=== PATIENT | male | born 1945 | race Caucasian/White ===

== ENCOUNTER 2020-09-25 07:35 | Day surgery (SDC) | payer MEDICARE ==
[~2020-09-25] VITALS: Ht 177.8 cm; Wt 85.5 kg
[~2020-09-25 07:35] MED LIST: AMLODIPINE BESYL5 MG PO; ATENOLOL50 MG PO; CIALIS20 MG PO; COUMADIN5 MG PO; FLUTICASONE PRO16 GM NAS; FUROSEMIDE20 MG PO; LOSARTAN POTAS100 MG PO; PERCOCET 5-3251 EACH PO; SIMVASTATIN20 MG PO; SUDAFED 12-HOU120 MG PO; TERAZOSIN HCL5 MG PO; VALACYCLOVIR500 MG PO; VALTREX1000 MG PO; WARFARIN SODIUM5 MG PO; WARFARIN SODIUM6 MG PO
--- NOTE | 2020-09-25 10:57 | NUR ---
09/25/20 Tom7 Jessica Ochoa 1051-PATIENT ARRIVED TO PACU ON 6L MASK RR EVEN ORAL AIRWAY IN PLACE. NONAROUSABLE. INCISION TO ABDOMEN CDI, IVF INFUSING. AFIB HR 60'S. WILL PLACE ICE OVER INCISION.
--- NOTE | 2020-09-25 11:39 | NUR ---
1135: PT ARRIVES TO DS RM 7 FROM PACU WITH EYES OPEN ON 2 L VIA NC, RESP EVEN AND UNLABORED. PT ABLE TO ANSWER COMMANDS APPROPRIATELY, DENIES PAIN OR NAUSEA. PT PROVIDED SMALL SIP OF WATER. DC CRITERIA EXPLAINED TO PT, CALL LIGHT WITHIN REACH. PT DROWSY, CONT PULSE OXIMETER LEFT IN PLACE.
--- NOTE | 2020-09-25 12:07 | NUR ---
PATIENT PUT INTERACTIVE MEDIA DIRECTOR LIGHT. NEEDED ASSISTANCE TO ADJUST BED. PATIENT GIVEN PUDDING. AT BEDSIDE. CALL LIGHT WITHIN REACH.
[2020-09-25] MEDS ORDERED: DILAUDID4 MG PO (12:16)
--- NOTE | 2020-09-25 12:36 | NUR ---
PATIENT TOLERATED PUDDING WELL TACO [place]PT[place] THAT WAS GIVEN TO PATIENT BY . PATIENT GIVEN SECOND PUDDING PER HIS REQUEST. DENIES PAIN. ABDOMEN DRESSING CDI. VS CHECKED. O2 TURNED OFF. PATIENT ON ROOM AIR. AT BEDSIDE. CALL LIGHT WITHIN REACH.
--- NOTE | 2020-09-25 15:00 | NUR ---
1237: PATIENT'S O2 SAT CHECKED. MAINTAINING O2 SATS ON ROOM AIR. PATIENT ASSISTED OOB, TO GET DRESSED, AND TO WALK TO BATHROOM. VOID WITHOUT DIFFICULTY. GAIT STEADY. DISCHARGE INSTRUCTIONS GIVEN TO PATIENT AND . IV DC'D WNL. TIP INTACT. DRESSING APPLIED. 1303: PATIENT DISCHARGED TO HOME WITH VIA WHEELCHAIR.
--- NOTE | 2020-09-26 05:41 | OR ---
[facility] [address], [place] [address] Signed DATE OF OPERATION: SURGEON: Eunice Estrada MD PREOPERATIVE DIAGNOSES: 1. Incarcerated supraumbilical trocar site incisional hernia (4 mm). 2. Incarcerated umbilical hernia (10 mm). POSTOPERATIVE DIAGNOSES: 1. Incarcerated supraumbilical trocar site incisional hernia (4 mm). 2. Incarcerated umbilical hernia (10 mm). PROCEDURES: 1. Primary supraumbilical trocar site incisional herniorrhaphy. 2. Primary umbilical herniorrhaphy with intraabdominal Ventralex mesh (4.3 cm). ESTIMATED BLOOD LOSS: None. INDICATIONS: Abhinav is a 74-year-old gentleman, asked to see me for his two hernias. He has an incarcerated umbilical hernia. He also has incarcerated supraumbilical trocar site incisional hernia. He continues to exercise regularly and keeps himself at his ideal body weight. He just got back from [place] after a fishing trip. He said the lump above the umbilicus has been quite painful, particularly leaning up against the edge of the boat and so forth. He reminded me this area was used for his robotic assisted prostatectomy as well as his laparoscopic cholecystectomy. He had been to his primary care provider. The ultrasound confirmed incarcerated fat in his incisional hernia. There was also fat inside the umbilical hernia. There was concern about bowel behind the umbilical hernia. In the office, Canelo and I could easily identify both hernias. Both were incarcerated and a bit tender to palpation. I gave Canelo our pamphlet on hernias. We had reviewed that together. He understands the nature of these two hernias. He understands the difference between a primary suture repair and a mesh repair. We had reviewed the expected intraop and postop course. There is risk of surgery including, but not limited to bleeding, infection, scarring, change in contour of the skin as well as recurrent hernias, chronic pain and infection of mesh requiring removal. He had expressed understanding and wished to proceed. DESCRIPTION OF PROCEDURE: I met with Canelo and his in our preop area. We all agreed on the two hernias, encircled them appropriately and marked them with my initials. After this, Canelo was Electronically Signed By: EUNICE ESTRADA MD 09/26/20 0541 PATIENT NAME: ABHINAV DOSHI OPERATIVE REPORT DATE OF : 45 REPORT #: [id number] PHYSICIAN: EUNICE ESTRADA MD PCP: ESTEFANY SCHULZ PA-C REPORT IS CONFIDENTIAL AND NOT TO BE RELEASED WITHOUT AUTHORIZATION [facility] [address], [place] [address] Signed taken into the operating room and placed in the supine position under general endotracheal tube anesthesia. He was given preoperative antibiotics along with subcutaneous heparin. SCDs were utilized. He was then prepped and draped in the usual sterile fashion. Even with sedation, we could not reduce the two hernias. A standard periumbilical midline incision was developed utilizing his previous scar. This was carried down around the two hernias bluntly and with the cautery. Both contained fat that had to be amputated and passed off the field. The trocar site incisional hernia was very tiny 3 or 4 mm at most. There was heavy scar tissue on either side. Consequently, we closed that with interrupted [id number] and simple #1 Prolene suture. The umbilical skin had been from the umbilical fascial defect. The umbilical fascial defect was about 10 mm in diameter. We therefore chose our 4.3 cm round Ventralex mesh and we placed that inside the abdomen and flushed against the posterior abdominal wall. We then closed the fascial defect transversely with a running #1 Prolene suture. Several passes of the suture went through the tab on the mesh to help hold it in place. The tab was cut flush with the abdominal wall and discarded. After this, local anesthetic was copiously injected into the abdominal wall and subcutaneous tissues. The wound was irrigated and suctioned out until clear. We brought the umbilical skin back down the midline fascia with an interrupted 2-0 PDS suture. We used interrupted 3-0 subcuticular Monocryl sutures to close the dermis. 5-0 fast absorbing plain gut running suture was used to reapproximate the skin edges. Dry gauze and tape were then applied. Canelo was then awakened from his anesthesia, extubated in the OR, and taken to recovery room in stable condition. Eunice Estrada MD ALB/MODL /[id number] cc: MD Estefany Soto PA-C Copies: EUNICE ESTRADA MD Electronically Signed By: EUNICE ESTRADA MD 09/26/20 0541 PATIENT NAME: ABHINAV DOSHI OPERATIVE REPORT DATE OF : 45 REPORT #: [id number] PHYSICIAN: EUNICE ESTRADA MD PCP: ESTEFANY SCHULZ PA-C REPORT IS CONFIDENTIAL AND NOT TO BE RELEASED WITHOUT AUTHORIZATION [facility] [address] [place] [address] [place], [place] [address] Signed ESTEFANY SCHULZ PA-C ~ Electronically Signed By: EUNICE ESTRADA MD 09/26/20 0541 PATIENT NAME: ABHINAV DOSHI OPERATIVE REPORT DATE OF : 45 REPORT #: [id number] PHYSICIAN: EUNICE ESTRADA MD PCP: ESTEFANY SCHULZ PA-C REPORT IS CONFIDENTIAL AND NOT TO BE RELEASED WITHOUT AUTHORIZATION
== END 2020-09-25 13:03 | disposition home or self-care (01) ==
LOC: DS 07:35
PROVIDERS: ATTEND Colon & Rectal Surgery
PROC: 0WUF0JZ Supplement Abdominal Wall with Synthetic Substitute, Open Approach (ICD-10-PCS; 2020-09-25)
PROC: 0WQF0ZZ Repair Abdominal Wall, Open Approach (ICD-10-PCS; principal; 2020-09-25 08:30)
DX: K43.0 Incisional hernia with obstruction, without gangrene (principal); K42.0 Umbilical hernia with obstruction, without gangrene; I10 Essential (primary) hypertension; E11.9 Type 2 diabetes mellitus without complications; E78.5 Hyperlipidemia, unspecified; I48.91 Unspecified atrial fibrillation; Z79.01 Long term (current) use of anticoagulants; Z88.5 Allergy status to narcotic agent; Z88.0 Allergy status to penicillin; Z91.048 Other nonmedicinal substance allergy status
CPT/HCPCS: 00750; C1781; J0330; J0690; J1100; J1644; J1885; J2001; J2405; J2704; J7121

== ENCOUNTER 2022-10-18 18:30 | Observation (INO) | payer MEDICARE ==
[~2022-10-18] VITALS: Ht 177.8 cm; Wt 86.2 kg
[~2022-10-18 18:30] MED LIST changes: +DILAUDID4 MG PO; -FLUTICASONE PRO16 GM NAS; -SUDAFED 12-HOU120 MG PO; -TERAZOSIN HCL5 MG PO; +TRIAMCINOLONE A15 G1 TOP
[2022-10-18 18:56] LABS: BILIRUBIN, URINE NEGATIVE (negative); BLOOD/HGB, URINE LARGE (Negative); KETONE, URINE NEGATIVE (Negative); LEUK ESTERASE, URINE SMALL (negative); NITRITE, URINE POSITIVE (negative)
[2022-10-18 19:01] LABS: BACTERIA, URINE 1+ /hpf (negative); EPITHELIAL CELLS, URINE 0 /lpf (0-1+); REFLEX CULTURE, URINE Yes (No)
[2022-10-18 19:06] LABS: BASOPHILS 0.3 % (0-2); EOSINOPHILS 0.1 % (0-6); HEMATOCRIT 44.4 % (35.0-50.0); HEMOGLOBIN 15.5 g/dL (12.0-18.0); LYMPHOCYTES 6.6 % (24-44); MCH 34.7 (27-36); MCV 99.3 fl (81-99); MONOCYTES 10.2 % (0-12); NEUTROPHILS 82.8 % (39-80); PLATELET COUNT 131 K/uL (140-440); RBC 4.47 M/ul (4.3-5.7); RDW 12.8 (10.5-15.0)
[2022-10-18] MEDS ORDERED: ELIQUIS5 MG PO (19:06)
[2022-10-18 19:21] LABS: ALBUMIN 3.1 g/dL (3.4-5.0); ALBUMIN/GLOBULIN RATIO 0.79 (1.1-2.4); ANION GAP 11.9 (7-21); BILIRUBIN, TOTAL 1.6 ng/dL (0.2-1.0); BUN/CREATININE RATIO 15.06 (6.0-28.6); CALCIUM 8.8 mg/dL (8.5-10.1); CREATININE, SERUM 1.46 mg/dL (0.70-1.30); POTASSIUM 3.9 mmol/L (3.5-5.1)
[2022-10-18 20:18] LABS: INFLUENZA B NAA NEGATIVE (NEGATIVE); RESPIRATORY SYNCYTIAL VIR NAA NEGATIVE (NEGATIVE)
[2022-10-18 21:44] LABS: LACTIC ACID, BLOOD 1.3 mmol/L (0.4-2.0)
[2022-10-18 22:05] VITALS: BP 109/60
--- NOTE | 2022-10-18 22:56 | NUR ---
PATIENT ARRIVED TO THE FLOOR VIA STRETCHER. PATIENT SBA FROM STRETCHER TO HOSIPTAL BED. VITALS TAKEN AND RECORDED. PATIENT UP TO BR TO VOID. PATIENTS URINE IS DARK NELSY AND CONCENTRATED. PATIENTS ADMISSION COMPLETED. PATIENT DENIES ANY PAIN OR NAUSEA. PATIENTS NONA INFUSING PER ORDER. DISCUSSED PLAN OF CARE WITH PATIENT. PATIENT DENIES ANY NEEDS. CALL LIGHT IN REACH.
--- NOTE | 2022-10-19 00:27 | NUR ---
PATIENT IS RESTING IN BED WITH EYES CLOSED, RR15. TELE #4, HR 66. CALL LIGHT IN REACH. IV INFUSING PER ORDER.
[2022-10-19 01:39] VITALS: BP 105/61
--- NOTE | 2022-10-19 03:10 | NUR ---
PATIENT REPORTS BEING COLD. PATIENTS TEMP EVALUATED AND IS WNL. PATIENT DENIES ANY CHILLS. WARM BLANKETS PROVIDED AND TEMP TURNED UP IN ROOM. PATIENTS IV INFUSING PER ORDER. PATIENT DENIES ANY FURTHER NEEDS. CALL LIGHT IN REACH.
--- NOTE | 2022-10-19 04:19 | NUR ---
PATIENT IS RESTING IN BED ON RIGHT SIDE. PATIENT REPORTS BEING COLD. PATIENTS TEMP TAKEN AND IS WNL. PATIENT PROVIDED WITH ARM BLANKET. PATIENTS IV INFUSING PER ORDER. PATIENT DENIES ANY PAIN OR NAUSEA. CALL LIGHT IN REACH.
[2022-10-19 04:49] VITALS: BP 118/54
--- NOTE | 2022-10-19 05:01 | NUR ---
PATIENT GIVEN PRN TYLENOL FOR CHILLS AND INCREASING TEMPRATURE. PATIENT DENIES ANY PAIN OR NAUSEA. PATIENT IS LAYING IN BED WITH CALL LIGHT WITHIN REACH. NO FURTHER NEEDS AT THIS TIME.
[2022-10-19 05:33] LABS: BASOPHILS 0.2 % (0-2); EOSINOPHILS 0.1 % (0-6); HEMATOCRIT 44.9 % (35.0-50.0); HEMOGLOBIN 15.5 g/dL (12.0-18.0); MCH 34.9 (27-36); MCHC 34.6 g/dl (30-36); MCV 100.8 fl (81-99); MONOCYTES 8.6 % (0-12); NEUTROPHILS 85.1 % (39-80); PLATELET COUNT 105 K/uL (140-440); RBC 4.45 M/ul (4.3-5.7); RDW 12.5 (10.5-15.0)
[2022-10-19 05:52] LABS: ALBUMIN 2.8 g/dL (3.4-5.0); ALBUMIN/GLOBULIN RATIO 0.76 (1.1-2.4); ANION GAP 13.2 (7-21); BILIRUBIN, TOTAL 1.8 ng/dL (0.2-1.0); BUN/CREATININE RATIO 16.4 (6.0-28.6); CALCIUM 8.8 mg/dL (8.5-10.1); CREATININE, SERUM 1.28 mg/dL (0.70-1.30); POTASSIUM 4.2 mmol/L (3.5-5.1); PROTEIN, TOTAL 6.5 g/dL (6.4-8.2)
--- NOTE | 2022-10-19 06:31 | NUR ---
PATIENT RESTING IN THE BED WITH A COLD WASH CLOTH ON HIS FOREHEAD. PATIENT STATES HE IS STILL FEELING HOT. PATIENT STATES HE HAS NO FURTHER NEEDS. TEMP WAS TAKEN.
[2022-10-19] MEDS ORDERED: SULFAMETHOXAZO1 EAC1 PO (07:19)
[2022-10-19 09:42] VITALS: BP 110/66
[2022-10-19] MEDS ORDERED: TERAZOSIN HCL5 MG PO (10:20)
[2022-10-19] MEDS ORDERED: SUDAFED 12-HOU120 MG PO (10:20)
[2022-10-19] MEDS ORDERED: FLUTICASONE PRO16 GM NAS (10:20)
--- NOTE | 2022-10-19 10:30 | NUR ---
medications reconiciled using pharmacy records and patient interview
--- NOTE | 2022-10-19 12:48 | NUR ---
PATIENT IN CHAIR, NO DISTRESS, ALERT AND ORIENTED X4. PATIENT REPORTS HE HAS NO PAIN AT THIS TIME. FRESH WATER PROVIDED TO PATIENT.
[2022-10-19 13:31] VITALS: BP 122/66
[2022-10-19] MEDS ORDERED: LEVOFLOXACIN750 MG PO (13:46)
== END 2022-10-19 15:17 | disposition home or self-care (01) ==
LOC: ED 18:30 → MS 18:32
PROVIDERS: Family Medicine; ADMIT Family Medicine; ATTEND Family Medicine
DX: N12 Tubulo-interstitial nephritis, not specified as acute or chronic (principal); I48.91 Unspecified atrial fibrillation; I10 Essential (primary) hypertension; Z20.822 Contact with and (suspected) exposure to COVID-19; Z88.5 Allergy status to narcotic agent; Z88.0 Allergy status to penicillin
CPT/HCPCS: 36415; 74176; 80053; 81001; 83605; 85025; 87502; A9270; C9803; J1956; J2405; J7030; J7121; U0002